=== PATIENT | female | born 1975 | race Caucasian/White ===

== ENCOUNTER 2018-08-16 12:03 | Emergency (ER) | payer OTHER ==
[2018-08-16 12:08] VITALS: BP 100/52; PULSE 77; TEMP 98.4; BMI 20.1
--- NOTE | 2018-08-16 13:23 | PDOC ---
History of Present Illness - General Chief Complaint: Injury Stated Complaint: FALL Time Seen by Provider: 08/16/18 13:11 - History of Present Illness Initial Comments: 08/16/18 13:17 43-year-old female without comorbidities presents for evaluation after fall. She states at work during a fire drill she fell backwards while leaning on a banister approximately 3 steps hitting the back of her head on the ground as well as her left shoulder. She has no headache there was no loss of consciousness no postinjury nausea vomiting or visual changes. She has mild scalp discomfort when palpated. She has mild posterior left shoulder pain. Past History - Past Medical History Allergies/Adverse Reactions: Allergies Allergy/AdvReac Type Severity Reaction Status Date / Time No Known Allergies Allergy Verified 08/16/18 12:05 Home Medications: Ambulatory Orders NK [No Known Home Medication] 08/16/18 COPD: No - Suicide/Smoking/Psychosocial Hx Smoking History: Current every day smoker Number of Cigarettes Smoked Daily: 5 Information on smoking cessation initiated: No Review of Systems - Review of Systems HEENTM: No: Blurred Vision, Recent change in vision, Double Vision ABD/GI: No: Nausea, Vomiting Musculoskeletal: Yes: Joint Pain Neurological: No: Headache, Dizziness *Physical Exam - Vital Signs Last Vital Signs Temp Pulse Resp BP Pulse Ox 98.4 F 77 18 100/52 L 100 08/16/18 12:06 08/16/18 12:06 08/16/18 12:06 08/16/18 12:06 08/16/18 12:06 - Physical Exam Comments: 08/16/18 13:18 HEAD: NC/AT Scalp was inspected. There is no hematoma. EYES: Conjuntiva clear, PERRL EOMI Ears: Canals and TM's normal NOSE: No d/c THROAT: Moist mucous membrances, oral pharanx clear, uvula midline NECK: Supple without adenopathy CARDIAC: S1 S2 LUNGS: CTA Full and Equal breath sounds ABDOMEN: Soft NT ND MS: Full ROM in all joints without edema NEUROLOGIC: No gross sensory or motor deficits, NVID SKIN: Normal color and temperature no lesions or rashes Left shoulder skin color and temperature are normal. Range of motion is full and nonpainful in all planes. 5 out of 5 strength with super spinatus isolation rotator cuff strength testing. Negative impingement maneuvers no indication of instability or gross sensorimotor deficits. She is neurovascularly intact. 08/16/18 13:20 Medical Decision Making - Medical Decision Making 08/16/18 13:20 Completely benign examination and a symptomatically patient who fell and struck her head. Mentating at baseline without issues I will have her follow-up with her PCP further evaluation should she require it. *DC/Admit/Observation/Transfer Diagnosis at time of Disposition: Scalp contusion, Shoulder contusion - Discharge Dispostion Disposition: HOME Condition at time of disposition: Stable Decision to Admit order: No - Referrals Referrals: Emil Swift [Non Staff, Medical] - - Patient Instructions Printed Discharge Instructions: Contusion Additional Instructions: Return to the emergency room should he develop any symptoms otherwise follow-up with internal medicine in one to 2 days for further evaluation and treatment options. He may take Tylenol as directed for pain. - Post Discharge Activity
== END 2018-08-16 13:39 | disposition home or self-care (01) ==
LOC: JERFT 12:03
DX: S00.03XA Contusion of scalp, initial encounter (principal); S40.012A Contusion of left shoulder, initial encounter; W10.9XXA Fall (on) (from) unspecified stairs and steps, initial encounter; Y93.89 Activity, other specified; Y92.219 Unspecified school as the place of occurrence of the external cause; Y99.0 Civilian activity done for income or pay; F17.210 Nicotine dependence, cigarettes, uncomplicated
CPT/HCPCS: 99281-25